=== PATIENT | male | born 1955 | race Caucasian/White ===

== ENCOUNTER 2016-11-03 13:33 | Emergency (ER) | payer BC ==
[~2016-11-03] VITALS: Ht 180.3 cm; Wt 86.9 kg
[2016-11-03 14:20] LABS: HEMATOCRIT 48.4 % (38.0-50.0); MCH 30.2 PG (29.0-34.0); MCHC 32.9 G/DL (30.0-36.0); MEAN PLAT.VOLUME 10.5 uM^3 (9.0-12.4); PLATELET COUNT 199 K/uL (156-360); RBC DIS.WIDTH-CV 13.3 % (11.8-14.6); RBC DIS.WIDTH-SD 45.3 % (39-53); RED BLOOD COUNT 5.26 M/uL (4.00-5.50)
[2016-11-03 14:29] LABS: CHLORIDE 109 mEq/L (99-109); POTASSIUM 3.6 mEq/L (3.7-5.4); SODIUM 140 mEq/L (136-147)
[2016-11-03 14:31] LABS: GLUCOSE 99 mg/dL (70-99)
[2016-11-03 14:32] LABS: ANION GAP 10 MEQ/L (2-14)
[2016-11-03 14:34] LABS: GFR ESTIMATE (CALCULATED) > 59 mL/min/
[2016-11-03 14:35] LABS: UREA NITROGEN (BUN) 14 mg/dL (9-23)
[2016-11-03 14:41] LABS: TROP-I INTERPRETATION NEGATIVE; TROPONIN-I < 0.01 ng/mL (0.0-0.30)
[2016-11-03 18:25] LABS: TROP-I INTERPRETATION NEGATIVE; TROPONIN-I < 0.01 ng/mL (0.0-0.30)
[2016-11-03 19:31] VITALS: BP 136/79
== END 2016-11-03 19:48 | disposition home or self-care (01) ==
LOC: EME 13:33
PROVIDERS: Emergency Medicine
DX: R06.00 Dyspnea, unspecified (principal); M79.605 Pain in left leg; R42 Dizziness and giddiness; Z86.711 Personal history of pulmonary embolism; Z86.718 Personal history of other venous thrombosis and embolism; Z79.82 Long term (current) use of aspirin
CPT/HCPCS: 71275; 80048; 84484; 85027; 93005; 93971; 99281; 99285; J7030